=== PATIENT | male | born 1990 | race Caucasian/White ===

== ENCOUNTER 2017-01-04 12:06 | Emergency (ER) | payer SELFPAY ==
[~2017-01-04] VITALS: Ht 198.1 cm; Wt 116.0 kg
[~2017-01-04 12:06] MED LIST: AMOX875T PO; CORTIS10A RIGHT EAR; FLUT1SPR9 EACH NARE
[2017-01-04 12:08] VITALS: BP 153/98; PULSE 90; RESP 17; TEMP 98.1; O2SAT 96
--- NOTE | 2017-01-04 12:53 | RADRPT ---
EXAM DATE/TIME: 01/04/2017 12:30 [facility] COMPARISON: No previous studies available for comparison. INDICATIONS : Right hand pain after punching a trailer MEDICAL HISTORY : 4 previous right hand fractures SURGICAL HISTORY : None. ENCOUNTER: Initial ACUITY: 1 day PAIN SCORE: 10/10 LOCATION: Right medial hand. FINDINGS: The bone density is normal. Mild soft tissue swelling at the medial aspect of the hand. Joint space w idths are intact. On the lateral view finding suggests possible dorsal dislocation of the fifth metac arpal with respect to the hamate. There is a tiny ossific fragment adjacent to the base of the fifth metacarpal possibly representing a small acute chip fragment. CONCLUSION: Soft tissue swelling and small ossific density adjacent to the base of the fifth metacarpal which hal uld be correlated for point tenderness. On the oblique radiograph there is a question of dorsal dislo cation of the base of the fifth metacarpal with respect to the wrist. Heath Joy MD on January 04, 2017 at 12:50 Board Certified Radiologist. This report was verified electronically.
--- NOTE | 2017-01-04 13:23 | RADRPT ---
EXAM DATE/TIME: 01/04/2017 13:11 [facility] COMPARISON: No previous studies available for comparison. INDICATIONS : Post reduction right hand 5th digit. MEDICAL HISTORY : 4 previous right hand fractures SURGICAL HISTORY : None. ENCOUNTER: Subsequent ACUITY: 1 day PAIN SCORE: 10/10 LOCATION: Right hand FINDINGS: A small ossific density seen at the base of the fifth metacarpal with improved alignment post reducti on. No obvious dislocation is not seen. Mild soft tissue swelling. CONCLUSION: Improved alignment with small ossific fragment adjacent to the base of the fifth metacarpal. Heath Joy MD on January 04, 2017 at 13:21 Board Certified Radiologist. This report was verified electronically.
--- NOTE | 2017-01-04 13:30 | PD ---
HPI Chief Complaint: Injury Time Seen by Provider: 12:14 Travel History International Travel<30 days: No Contact w/Intl Traveler<30days: No Traveled to known affect area: No History of Present Illness HPI 26-year-old male presents emergency department for evaluation of right hand pain. Patient reports that he became angry and punched the dashboard with his right hand. He reports pain in his fifth metacarpal. He denies numbness or tingling in the extremity. He reports normal sensation in the hand and digits. He is able to fully flex and extend the fingers. Pain is relieved by rest. Pain severity 4/10. PFSH Past Medical History Cardiovascular Problems: Yes Chest Pain: Yes Diminished Hearing: No Immunizations Current: Yes Influenza Vaccination: No Social History Alcohol Use: Yes (SOCIALLY) Tobacco Use: Yes (1 PPD) Substance Use: No Allergies-Medications (Allergen,Severity, Reaction): Coded Allergies: No Known Allergies (Unverified , 01/04/17) Reported Meds & Prescriptions Reported Meds & Active Scripts Active No Active Prescriptions or Reported Medications Review of Systems Except as stated in HPI: all other systems reviewed are Neg Physical Exam Narrative GENERAL: Well-nourished, well-developed patient. SKIN: Focused skin assessment warm/dry. HEAD: Normocephalic. EYES: No scleral icterus. No injection or drainage. NECK: Supple, trachea midline. No JVD or lymphadenopathy. CARDIOVASCULAR: Regular rate and rhythm without murmurs, gallops, or rubs. RESPIRATORY: Breath sounds equal bilaterally. No accessory muscle use. GASTROINTESTINAL: Abdomen soft, non-tender, nondistended. MUSCULOSKELETAL: No cyanosis, or edema. Right hand: Mild swelling and tenderness to the fifth metacarpal and fourth and fifth metacarpal heads. No abrasions. Patient is able to fully flex and extend fingers. Patient is able to make a fist. Normal sensation in the hand. Brisk cap refill. Data Data Last Documented VS Vital Signs Date Time Temp Pulse Resp B/P (MAP) Pulse Ox O2 Delivery O2 Flow Rate FiO2 01/04/17 12:14 Room Air 01/04/17 12:08 98.1 90 17 153/98 (116) 96 Orders Orders Hand, Complete ([id number]) (01/04/17 ) Hand, Complete ([id number]) (9/25/17 ) Splint Or Brace Apply/Monitor (01/04/17 13:35) [facility] Medical Decision Making Medical Screen Exam Complete: Yes Emergency Medical Condition: Yes Differential Diagnosis Metacarpal fracture versus contusion versus finger dislocation Narrative Course 26-year-old male with chief complaint of right hand pain after punching his dashboard with a closed fist prior to arrival. On exam patient has mild swelling at the base of the fifth metacarpal. His pain is primarily located over the fourth and fifth metacarpal heads. No obvious deformities noted. Extremities neurovascularly intact. Patient is able to make a fist and fully extend all digits. X-ray the hand: Questionable dislocation of the fifth metacarpal on oblique view with adjacent small ossific density questionable for fracture. Closed reduction using traction performed. Patient reports symptoms improvement postprocedure. Patient was splinted. The extremity is neurovascular intact. Post reduction x-rays show improved alignment. Patient given referral to follow-up with hand surgeon. Return precautions discussed. Patient verbalizes understanding and agrees to plan Diagnosis Primary Impression: Finger dislocation Qualified Codes: S63.259A - Unspecified dislocation of unspecified finger, initial encounter Additional Impression: Fx metacarpal Qualified Codes: S62.346A - Nondisplaced fracture of base of fifth metacarpal bone, right hand, initial encounter for closed fracture Referrals: [facility] Hand Surgeon Additional Instructions: Keep the splint in place until follow-up. Take [id number] Motrin 600-800 mg every 6-8 hours as needed for pain. Ice and elevate the extremity. Will be contacted by the Hospital to arrange follow-up. Scripts No Active Prescriptions or Reported Meds Disposition: 01 DISCHARGE HOME Condition: Stable Gloria Aguirre Jan 04, 2017 13:30
[2017-01-04] MEDS ORDERED: KETOROLAC TROMETHAMINE 60 MG/2 ML (IM) VIAL IM ONE (13:45)
== END 2017-01-04 12:30 | disposition home or self-care (01) ==
LOC: PHEFT 12:06
DX: S62.346A Nondisplaced fracture of base of fifth metacarpal bone, right hand, initial encounter for closed fracture (principal); F17.210 Nicotine dependence, cigarettes, uncomplicated; W22.8XXA Striking against or struck by other objects, initial encounter; Y99.8 Other external cause status
CPT/HCPCS: 26770; 73130; 96372; 99283; J1885